=== PATIENT | female | born 1980 | race Caucasian/White ===

== ENCOUNTER → 2019-03-07 | Outpatient (CLI) | payer OTHER ==
[2019-03-07 08:26] LABS: EOS # 0.1 (0.04-0.40); EOS % 0.8 % (1.0-5.0); HEMATOCRIT 39.6 % (37.0-47.0); HEMOGLOBIN 12.2 g/dL (12.5-16.0); LYMPH# 2.4 (1.50-4.00); MEAN CELL VOLUME 77 fl (78-100); MEAN CORPUSCULAR HGB CONC 31 g/dL (33-37); MEAN PLATELET VOLUME 10.2 fl (7.4-10.4); MONO # 0.6 (0.20-0.80); NEU # 3.5 (1.40-6.50); PLATELET COUNT 398 K/mm3 (130-400); RED BLOOD COUNT 5.14 M/mm3 (4.10-5.30); RED CELL DISTRIBUTION WIDTH 17.2 % (11.5-14.5); WHITE BLOOD COUNT 6.6 K/mm3 (4.8-10.8)
[2019-03-07 08:40] LABS: ALBUMIN 4.1 g/dL (3.5-5.0); POTASSIUM 4.2 mmol/L (3.5-5.1)
[2019-03-07 08:41] LABS: CALCIUM 8.9 mg/dL (8.3-10.5)
[2019-03-07 08:42] LABS: TOTAL PROTEIN 7.2 g/dL (6.4-8.3)
[2019-03-07 08:44] LABS: TOTAL BILIRUBIN 0.5 mg/dL (0.2-1.2)
[2019-03-07 09:28] LABS: MEAN CORPUSCULAR HEMOGLOBIN 24 pg (27-31)
== END ==
LOC: LAB 08:12
PROVIDERS: Physician Assistant
DX: Z00.00 Encounter for general adult medical examination without abnormal findings (principal); R51 Headache; R53.83 Other fatigue

== ENCOUNTER 2021-06-13 22:01 | Emergency (ER) | payer OTHER ==
[~2021-06-13] VITALS: Ht 165.1 cm; Wt 56.8 kg
[2021-06-13] MEDS ORDERED: PRILOSEC 20MG20 MG PO (22:18)
[2021-06-13] MEDS ORDERED: SINGULAIR PO (22:18)
[2021-06-13] MEDS ORDERED: ZOVIRAX400 MG PO (22:20)
[2021-06-13] MEDS ORDERED: NORTRIPTYLINE H50 M1 PO (22:20)
[2021-06-13 22:31] VITALS: BP 152/98
[2021-06-13 23:34] LABS: BASO # 0.03 K/mm3 (0.02-0.10); EOS # 0.07 K/mm3 (0.04-0.40); EOS % 0.7 % (1.0-5.0); HEMATOCRIT 38.9 % (37.0-47.0); HEMOGLOBIN 12.2 g/dL (12.5-16.0); LYMPH# 2.56 K/mm3 (1.50-4.00); MEAN CELL VOLUME 80 fl (78-100); MEAN CORPUSCULAR HEMOGLOBIN 25 pg (27-31); MEAN CORPUSCULAR HGB CONC 31 g/dL (33-37); MEAN PLATELET VOLUME 10.2 fl (7.4-10.4); MONO # 0.75 K/mm3 (0.20-0.80); NEU # 6.01 K/mm3 (1.40-6.50); PLATELET COUNT 435 K/mm3 (130-400); RED BLOOD COUNT 4.89 M/mm3 (4.10-5.30); RED CELL DISTRIBUTION WIDTH 15.2 % (11.5-14.5); WHITE BLOOD COUNT 9.4 K/mm3 (4.8-10.8)
[2021-06-13 23:38] LABS: ALBUMIN 4.3 g/dL (3.5-5.0); POTASSIUM 3.9 mmol/L (3.5-5.1); SODIUM 138 mmol/L (136-145)
[2021-06-13 23:39] LABS: CALCIUM 9.6 mg/dL (8.3-10.5)
[2021-06-13 23:40] LABS: GLUCOSE 107 mg/dL (65-105)
[2021-06-13 23:41] LABS: CARBON DIOXIDE 23 mmol/L (22-29); TOTAL PROTEIN 7.4 g/dL (6.4-8.3)
[2021-06-13 23:42] LABS: TOTAL BILIRUBIN 0.3 mg/dL (0.2-1.2)
[2021-06-13 23:46] LABS: AST-SGOT 16 U/L (5-34)
[2021-06-13 23:47] LABS: ALT/SGPT 7 U/L (0-55)
[2021-06-13 23:50] LABS: ALCOHOL IN-HOUSE < 10 mg/dL (<10)
[2021-06-13 23:59] LABS: URINE APPEARANCE CLOUDY; URINE BILIRUBIN NEGATIVE (NEGATIVE); URINE BLOOD NEGATIVE (NEGATIVE); URINE COLOR LT YELLOW; URINE GLUCOSE NEGATIVE (NEGATIVE); URINE KETONE 1+ (NEGATIVE); URINE LEUKOCYTE ESTERASE NEGATIVE (NEGATIVE); URINE NITRATE NEGATIVE (NEGATIVE); URINE PROTEIN(semi-quant) TRACE (NEGATIVE); URINE UROBILINOGEN NORMAL (NORMAL)
[2021-06-14 01:14] LABS: ACETAMINOPHEN < 1 ug/mL
== END 2021-06-14 07:15 | disposition short-term general hospital (02) ==
LOC: ED 22:01
PROVIDERS: Family Medicine
DX: F32.A Depression, unspecified (principal); R45.851 Suicidal ideations; B02.29 Other postherpetic nervous system involvement

== ENCOUNTER → 2021-12-22 | Outpatient (CLI) | payer OTHER ==
[~2021-12-22] MED LIST: NORTRIPTYLINE H50 M1 PO; PRILOSEC 20MG20 MG PO; SINGULAIR PO; ZOVIRAX400 MG PO
== END ==
LOC: LAB 12:22
DX: A09 Infectious gastroenteritis and colitis, unspecified (principal)

== ENCOUNTER → 2023-12-31 | Outpatient (CLI) | payer OTHER ==
[~2023-12-31] MED LIST changes: +REMERON15 MG PO; +SINGULAIR 110 MG/TAB PO; +VENLAFAXINE HY150 MG PO
[2023-12-31 09:14] LABS: BASO # 0.03 K/mm3 (0.02-0.10); EOS # 0.02 K/mm3 (0.04-0.40); EOS % 0.4 % (1.0-5.0); HEMATOCRIT 42.5 % (37.0-47.0); HEMOGLOBIN 13.5 g/dL (12.5-16.0); LYMPH# 2.18 K/mm3 (1.50-4.00); MEAN CELL VOLUME 82 fl (78-100); MEAN CORPUSCULAR HEMOGLOBIN 26 pg (27-31); MEAN CORPUSCULAR HGB CONC 32 g/dL (33-37); MEAN PLATELET VOLUME 9.9 fl (7.4-10.4); MONO # 0.54 K/mm3 (0.20-0.80); NEU # 2.68 K/mm3 (1.40-6.50); PLATELET COUNT 410 K/mm3 (130-400); RED BLOOD COUNT 5.18 M/mm3 (4.10-5.30); RED CELL DISTRIBUTION WIDTH 13.9 % (11.5-14.5); WHITE BLOOD COUNT 5.5 K/mm3 (4.8-10.8)
[2023-12-31 09:18] LABS: ALBUMIN 4.1 g/dL (3.5-5.0)
[2023-12-31 09:19] LABS: CALCIUM 8.6 mg/dL (8.3-10.5)
[2023-12-31 09:23] LABS: TOTAL BILIRUBIN 0.5 mg/dL (0.2-1.2)
== END ==
LOC: LAB 08:56
PROVIDERS: Physician Assistant Medical
DX: Z01.818 Encounter for other preprocedural examination (principal)

== ENCOUNTER → 2024-04-17 | Outpatient (CLI) | payer OTHER | LOC: LAB 11:21 | DX: Z00.01 Encounter for general adult medical examination with abnormal findings (principal) ==

== ENCOUNTER → 2024-06-23 | Outpatient (CLI) | payer OTHER ==
[2024-06-23 08:38] LABS: CALCIUM 8.7 mg/dL (8.3-10.5)
[2024-06-23 08:39] LABS: HEMATOCRIT 40.7 % (37.0-47.0); HEMOGLOBIN 12.9 g/dL (12.5-16.0); MEAN PLATELET VOLUME 10.5 fl (7.4-10.4); RED BLOOD COUNT 5.23 M/mm3 (4.10-5.30); RED CELL DISTRIBUTION WIDTH 17.2 % (11.5-14.5); WHITE BLOOD COUNT 5.3 K/mm3 (4.8-10.8)
== END ==
LOC: LAB 08:17
PROVIDERS: Podiatrist Sports Medicine
DX: M79.671 Pain in right foot (principal); T84.84XS Pain due to internal orthopedic prosthetic devices, implants and grafts, sequela; T84.223S Displacement of internal fixation device of bones of foot and toes, sequela